=== PATIENT | male | born 1985 | race Caucasian/White ===

== ENCOUNTER 2020-11-12 08:46 | Emergency (ER) | payer OTHER ==
[~2020-11-12 08:46] MED LIST: IBUPROFEN800 MG PO
[2020-11-12 09:39] LABS: HEMOGLOBIN 12.6 gm/dl (14.0-17.5); RED BLOOD COUNT 4.47 M/UL (4.20-5.50); WHITE BLOOD COUNT 10.2 K/UL (4.5-11.0)
[2020-11-12 10:10] LABS: BUN/CREATININE RATIO 32 (0-10)
== END 2020-11-12 14:20 | disposition home or self-care (01) ==
LOC: ER1 08:46
PROVIDERS: Emergency Medicine
DX: T68.XXXA Hypothermia, initial encounter (principal)
CPT/HCPCS: 80053; 80307; 81001; 82550; 82553; 84484; 85025; 99284

== ENCOUNTER 2021-08-21 23:07 | Emergency (ER) | payer MEDICAID | END 2021-08-22 01:56 | disposition home or self-care (01) | LOC: ER1 23:07 | DX: M79.672 Pain in left foot (principal); M79.671 Pain in right foot; Z20.822 Contact with and (suspected) exposure to COVID-19 | CPT/HCPCS: 99283 ==

== ENCOUNTER 2021-08-25 15:39 | Emergency (ER) | payer SELFPAY | END 2021-08-25 15:44 | disposition left against medical advice (07) | LOC: ER1 15:39 | DX: Z53.21 Procedure and treatment not carried out due to patient leaving prior to being seen by health care provider (principal) ==

== ENCOUNTER 2021-12-26 01:00 | Emergency (ER) | payer OTHER ==
[2021-12-26 01:57] LABS: HEMOGLOBIN 12.3 gm/dl (14.0-17.5); RED BLOOD COUNT 4.29 M/UL (4.20-5.50); WHITE BLOOD COUNT 6.2 K/UL (4.5-11.0)
[2021-12-26 02:25] LABS: BUN/CREATININE RATIO 19 (0-10)
[2021-12-26] MEDS ORDERED: IBUPROFEN600 MG PO (05:16)
[2021-12-26] MEDS ORDERED: ZOFRAN ODT 4 MG4 MG PO (05:16)
== END 2021-12-26 05:30 | disposition home or self-care (01) ==
LOC: ER1 01:00
PROVIDERS: Physician Assistant
DX: R51.9 Headache, unspecified (principal); R11.2 Nausea with vomiting, unspecified; F17.210 Nicotine dependence, cigarettes, uncomplicated
CPT/HCPCS: 80053; 82550; 82553; 83874; 84484; 85025; 93005; 96361; 96374; 99284; J2405

== ENCOUNTER 2022-02-02 05:15 | Emergency (ER) | payer OTHER ==
[~2022-02-02 05:15] MED LIST changes: +IBUPROFEN600 MG PO; +ZOFRAN ODT 4 MG4 MG PO
[2022-02-02 06:27] LABS: HEMOGLOBIN 11.5 gm/dl (14.0-17.5); WHITE BLOOD COUNT 8.7 K/UL (4.5-11.0)
[2022-02-02 06:51] LABS: BUN/CREATININE RATIO 16 (0-10)
== END 2022-02-02 07:10 | disposition left against medical advice (07) ==
LOC: ER1 05:15
PROVIDERS: Family Medicine
DX: S01.01XA Laceration without foreign body of scalp, initial encounter (principal); F17.210 Nicotine dependence, cigarettes, uncomplicated; W10.9XXA Fall (on) (from) unspecified stairs and steps, initial encounter; Y92.009 Unspecified place in unspecified non-institutional (private) residence as the place of occurrence of the external cause
CPT/HCPCS: 70450; 71250; 72125; 80053; 80307; 81001; 82550; 82553; 84484; 85025; 93005; 99285; G0480

== ENCOUNTER 2022-02-02 07:30 | Emergency (ER) | payer OTHER | END 2022-02-02 09:25 | disposition home or self-care (01) | LOC: ER1 07:30 | DX: S01.01XA Laceration without foreign body of scalp, initial encounter (principal); F17.200 Nicotine dependence, unspecified, uncomplicated; W19.XXXA Unspecified fall, initial encounter; Z23 Encounter for immunization | CPT/HCPCS: 12002; 90471; 90714; 99282 ==